=== PATIENT | male | born 1995 | race Two or more races ===

== ENCOUNTER 2017-10-09 00:49 | Emergency (ER) | payer SELFPAY ==
[~2017-10-09] VITALS: Ht 175.3 cm; Wt 72.6 kg
[2017-10-09] MEDS ORDERED: IV NORMAL SALINE 1000 ML BAG IV ONE (01:30)
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
[2017-10-09 01:49] LABS: BASOPHILS # (AUTO) 0.1 K/uL (0.0-8.0); BASOPHILS % (AUTO) 0.7 % (0.0-2.0); EOSINOPHILS % (AUTO) 0.6 % (0.0-7.0); HEMATOCRIT 44.6 % (36.7-47.1); HEMOGLOBIN 15.3 g/dL (12.5-16.3); LYMPHOCYTES # (AUTO) 1.9 K/uL (20.0-40.0); LYMPHOCYTES % (AUTO) 23.8 % (20.5-51.5); MEAN CORPUSCULAR HEMOGLOBIN 30.5 uug (23.8-33.4); MEAN CORPUSCULAR HGB CONC 34 g/dL (32.5-36.3); MEAN CORPUSCULAR VOLUME 88.9 fL (73.0-96.2); MONOCYTES # (AUTO) 0.7 K/uL (2.0-10.0); MONOCYTES % (AUTO) 8.3 % (0.0-11.0); NEUTROPHILS # (AUTO) 5.3 K/uL (1.8-8.9); NEUTROPHILS % (AUTO) 66.6 % (38.5-71.5); PLATELET COUNT (AUTO) 192 K/uL (152-348); RED BLOOD CELL COUNT(AUTO) 5.01 MIL/uL (4.06-5.63)
[2017-10-09 01:58] LABS: CREATININE 0.9 mg/dL (0.6-1.3); POTASSIUM 3.4 mmol/L (3.5-5.1)
[2017-10-09 02:04] LABS: BILIRUBIN,DIRECT 0.1 mg/dL (0.0-0.2); BILIRUBIN,TOTAL 0.4 mg/dL (0.2-1.0); TOTAL PROTEIN, SERUM 7.1 g/dL (6.4-8.2)
[2017-10-09] MEDS ORDERED: IV NORMAL SALINE 250 ML IV ONE (02:44)
[2017-10-09] MEDS ORDERED: IOHEXOL 300MG/ML 100 ML INFUS..BTL ONE ×2 (02:44→03:04)
--- NOTE | 2017-10-09 03:09 | NUR ---
Pt back in room from radiology. No acute distress noted. Ambulated to bathroom w/ steady gait. Denies nausea or dizziness. No acute distress noted.
--- NOTE | 2017-10-09 03:53 | NUR ---
Patient discharged to home in stable conditon. Written and verbal after care instructions given. Patient verbalizes understanding of instructions. Ambulated w/ steady gait on crutches. All personal belongings taken w/ patient.
[2017-10-09 03:55] VITALS: BP 127/73
== END 2017-10-09 03:55 | disposition home or self-care (01) ==
LOC: ER 00:52
DX: S93.402A Sprain of unspecified ligament of left ankle, initial encounter (principal); S13.4XXA Sprain of ligaments of cervical spine, initial encounter; S20.219A Contusion of unspecified front wall of thorax, initial encounter; S39.91XA Unspecified injury of abdomen, initial encounter; S09.90XA Unspecified injury of head, initial encounter; V49.9XXA Car occupant (driver) (passenger) injured in unspecified traffic accident, initial encounter; Y93.89 Activity, other specified; Y92.413 State road as the place of occurrence of the external cause; Y99.8 Other external cause status
CPT/HCPCS: 29515; 36415; 70450; 71045; 71260; 72125; 73110; 73130; 73610; 73630; 74177; 80048; 80076; 84484; 85025; 85730; 86850; 86900; 86901; 93005; 99285; A4663; G0480; J7030; J7050; Q9967 ×2; 70030-TC